=== PATIENT | female | born 1965 | race Hispanic/Latino ===

== ENCOUNTER → 2021-05-31 | Outpatient (CLI) | payer OTHER | END | disposition home or self-care (01) | LOC: OIH 13:36 | PROVIDERS: ATTEND Internal Medicine Cardiovascular Disease | DX: Z13.6 Encounter for screening for cardiovascular disorders (principal) | CPT/HCPCS: 75571 ==

== ENCOUNTER 2022-12-23 16:08 | Emergency (ER) | payer OTHER, MEDICARE ==
[~2022-12-23] VITALS: Ht 152.4 cm; Wt 90.3 kg
[2022-12-23] MEDS ORDERED: IBUP-2070 PO (18:59)
[2022-12-23 19:10] VITALS: BP 132/80; PULSE 72; RESP 18; O2SAT 98
== END 2022-12-23 19:21 | disposition home or self-care (01) ==
LOC: EDH 16:08
DX: M71.21 Synovial cyst of popliteal space [Baker], right knee (principal); E11.9 Type 2 diabetes mellitus without complications; E78.00 Pure hypercholesterolemia, unspecified; I10 Essential (primary) hypertension
CPT/HCPCS: 93971

== ENCOUNTER 2024-05-24 20:01 | Emergency (ER) | payer OTHER ==
[~2024-05-24] VITALS: Ht 149.9 cm; Wt 86.2 kg
[~2024-05-24 20:01] MED LIST: CYCL-309 PO; IBUP-2070 PO
--- NOTE | 2024-05-24 20:26 | ERN ---
ED Note History of Present Illness Stated Complaint: ABD PAIN Chief Complaint: Abdominal Pain Time Seen by MD: 20:12 Dictation: PATIENT IS A 58-YEAR-OLD FEMALE COMING IN TODAY WITH RIGHT FLANK PAIN THAT RADIATES TO RIGHT LOWER QUADRANT COLICKY FOR THREE DAYS. SHE DENIES FEVER CHILLS NAUSEA VOMITING. STATES SHE HAS A SURGICALLY ABSENT GALLBLADDER AND APPENDIX. SHE HAS POSITIVE OVER HER RIGHT FLANK WITH CVAT TENDERNESS DENIES HISTORY OF STONES OR PYELO Allergies: Coded Allergies: No Known Drug Allergies (Unverified Allergy, Unknown, 12/23/22) Home Meds Active Scripts Cyclobenzaprine HCl (Cyclobenzaprine HCl) 10 Mg Tablet, 10 MG PO TID for 30 Days, #30 TAB Prov:EM PEGUERO SPEECH COMMUNICATION PROFESSOR 03/20/23 Ibuprofen (Ibuprofen) 600 Mg Tablet, 600 MG PO Q6H PRN for PAIN, #30 TAB Prov:KIRAN BREWER V POT PUNCHER 12/23/22 Past Medical History Past Medical History: Diabetes-Type II, High Cholesterol, Hypertension, Other Additional Past Medical Hx: HX OF FX AND HERNIATED DISCS Surgical History: Appendectomy, Hysterectomy, Cholecystectomy, Other, Surgical History Other: BILATERAL WRIST, BILATERAL KNEE History: Not Applicable RN Note Reviewed/Agreed w/PFSH: Yes Review of System Dictation CONSTITUTIONAL: NEGATIVE EXCEPT FOR HPI HEAD/FACE: NEGATIVE EXCEPT FOR HPI EENT: NEGATIVE EXCEPT FOR HPI RESPIRATORY: NEGATIVE EXCEPT FOR HPI GASTROINTESTINAL/ABDOMINAL: NEGATIVE EXCEPT FOR HPI RIGHT FLANK PAIN THAT RADIATES TO RIGHT LOWER QUADRANT GENITOURINARY: NEGATIVE EXCEPT FOR HPI MUSCULOSKELETAL: NEGATIVE EXCEPT FOR HPI INTEGUMENTARY: NEGATIVE EXCEPT FOR HPI NEUROLOGICAL/PSYCH: NEGATIVE EXCEPT FOR HPI HEMATOLOGIC/LYMPHATIC: NEGATIVE EXCEPT FOR HPI ALL SYSTEMS NEGATIVE, EXCEPT NOTED ABOVE. 13 POINT REVIEW OF SYSTEMS ASSESSED AND ALL NEGATIVE EXCEPT FOR ABOVE. Initial Vital Sign VS Vital Signs Date Time Temp Pulse Resp B/P (MAP) Pulse Ox O2 Delivery O2 Flow Rate FiO2 05/24/24 20:03 98.4 74 20 155/83 98 Room Air Physical Exam Dictation VITAL SIGNS REVIEWED GENERAL APPEARANCE: ALERT, ORIENTED X 3, MONITOR ACUTE DISTRESS, WELL DEVELOPED, NOURISHED. OBESITY HEAD AND FACE: NON-TRAUMATIC. EYES: PERRL, PINK CONJUNCTIVAS, EYELID NO TRAUMA, ANTERIOR CHAMBER WITH ARCUS SENILIS. EARS: PINNAS INTACT AND NO SIGNS OF TRAUMA OR ERYTHEMA EAR CANALS CLEAR AND NO DISCHARGE TM NO ERYTHEMA NOSE: NO DISCHARGE, NO BLEEDING. OROPHARYNX: MOUTH NORMAL, TONGUE PINK, PHARYNX CLEAR,NO ERYTHEMA, TONSILS NO EXUDATES, NO ABSCESSES NOTED, MUCOUS MEMBRANE MOIST NECK: SUPPLE, NON-TENDER, NO THYROMEGALY, NO MASSES, NO JVD, NO BRUITS BREAST:DEFERRED CHEST:NO TENDERNESS, NO CREPITUS, NO PARADOXICAL MOVEMENT, NO RETRACTIONS LUNGS:CLEAR, WELL-VENTILATED, SYMMETRIC, NO RALES, NO WHEEZING, NO RHONCHI, NO STRIDOR, GOOD BREATH SOUNDS BILATERALLY HEART: REGULAR RATE, REGULAR RHYTHM, NO MURMUR, NO GALLOPS VASCULAR: NO PERIPHERAL EDEMA, ABDOMEN: SOFT, POSITIVE BOWEL SOUNDS, NONDISTENDED, NO GUARDING, NONTENDER, NO REBOUND, NO MASSES NO HEPATOMEGALY, NO SPLENOMEGALY, NO MENDIOLA'S SIGN, NO HERNIAS. POSITIVE CVAT RICE RECTAL: DEFERRED GENITAL: DEFERRED NEUROLOGICAL: NORMAL SPEECH, MOTOR FUNCTION INTACT, SENSORY FUNCTION INTACT MUSCULOSKELETAL: NECK NONTENDER, FULL RANGE OF MOTION, BACK NONTENDER, FULL RANGE OF MOTION, EXTREMITIES: NONTENDER, FULL RANGE OF MOTION SKIN: COLOR PINK, DRY, NO TURGOR, NO RASH, NO LACERATIONS, NO ABRASIONS, NO CONTUSIONS. LYMPHATIC: DEFERRED Results (Laboratory/Radiology) Laboratory/Radiology Laboratory Tests Test 05/24/24 20:50 White Blood Count 8.0 K/uL (4.8-10.8) Red Blood Count 4.65 MIL/uL (4.00-5.50) Hemoglobin 13.5 g/dL (12.0-16.0) Hematocrit 39.5 % (36-48) Mean Corpuscular Volume 84.9 fL (79-99) Mean Corpuscular Hemoglobin 29.0 pg (27.0-33.0) Mean Corpuscular Hemoglobin Concent 34.2 g/dL (32.0-36.0) Red Cell Distribution Width 13.2 % (11.0-15.5) Platelet Count 243 K/uL (130-400) Mean Platelet Volume 11.0 fL (7.5-10.5) H Immature Granulocyte % (Auto) 0.1 % (0-1) Neutrophils (%) (Auto) 64.8 % (40.0-77.0) Lymphocytes (%) (Auto) 28.1 % (21.0-51.0) Monocytes (%) (Auto) 5.6 % (3.0-13.0) Eosinophils (%) (Auto) 0.9 % (0.0-8.0) Basophils (%) (Auto) 0.5 % (0.0-5.0) Neutrophils # (Auto) 5.2 K/uL (1.8-7.7) Lymphocytes # (Auto) 2.3 K/uL (1.0-4.8) Monocytes # (Auto) 0.5 K/uL (0.1-1.0) Eosinophils # (Auto) 0.07 K/uL (0.00-0.70) Basophils # (Auto) 0.04 K/uL (0.00-0.20) Absolute Immature Granulocyte (auto 0.01 K/uL (0-1) Nucleated Red Blood Cells 0.0 % (0.0-0.19) Sodium Level 143 mmol/L (136-145) Potassium Level 3.3 mmol/L (3.5-5.1) L Chloride Level 102 mmol/L (101-111) Carbon Dioxide Level 33 mmol/L (21-32) H Blood Urea Nitrogen 12 mg/dL (7-18) Creatinine 0.9 mg/dL (0.5-1.0) Glomerular Filtration Rate Calc 75 mL/min (>90) Random Glucose 111 mg/dL (70-105) H Total Calcium 9.4 mg/dL (8.5-10.1) Lipase 161 U/L (16-77) H Labs Reviewed?: Yes ED Course ED Course Orders Procedure Category Date Status Time Cbc With Differential LAB 05/24/24 Complete 20:21 Urinalysis Profile LAB 05/24/24 Logged 20:21 0.9%Nacl 1000ml (Ns PHA 05/24/24 Complete 1000ml) 20:30 Ketorolac PHA 05/24/24 Complete Tromethamine 30mg/Ml 20:30 Ct Abdomen/Pelvis W/O CT 05/24/24 Resulted Contrast 20:21 Lipase LAB 05/24/24 Complete 20:21 Basic Metabolic Panel LAB 05/24/24 Complete 20:21 Potassium Bicarb/Cit PHA 05/24/24 Complete Ac 25meq (K-Lyte Ta 22:30 Current Medications Medications (Trade) Dose Ordered Sig/Marian Route PRN Reason Start Time Stop Time Status Last Admin Dose Admin Ketorolac Tromethamine (toRADol) 30 mg ONCE ONCE IVP 05/24/24 20:30 05/24/24 20:31 DC 05/24/24 23:02 Potassium Bicarbonate (K-Lyte Tablet Eff 25 Meq Tablet.eff) 25 meq ONCE ONCE PO 05/24/24 22:30 05/24/24 22:31 DC 05/24/24 23:02 Sodium Chloride 1,000 ml @ 0 mls/hr ONCE ONCE IV 05/24/24 20:30 05/24/24 20:31 DC 05/24/24 23:02 Vital Signs Date Time Temp Pulse Resp B/P (MAP) Pulse Ox O2 Delivery O2 Flow Rate FiO2 05/24/24 20:03 98.4 74 20 155/83 98 Room Air Medical Decision Making MDM Unclear the etiology of the patient's right upper quadrant pain. We will get a plain CT scan of her abdomen and pelvis to see if we see any structural causes or kidney stones. DX & DISP Disposition: Discharge Departure Impression: Primary Impression: Fatty liver Condition: Stable Additional Instructions: Discussed CT scan findings of fatty liver with primary care doctor or GI doctor. Continue to treat the pain with ibuprofen. Referrals: LIZA LOPEZ (PCP) EM PEGUERO NP May 24, 2024 20:26 NADINE GRANGER MD May 24, 2024 23:30
[2024-05-24 20:57] LABS: BASOPHILS # (AUTO) 0.04 K/uL (0.00-0.20); BASOPHILS % (AUTO) 0.5 % (0.0-5.0); EOSINOPHILS # (AUTO) 0.07 K/uL (0.00-0.70); EOSINOPHILS % (AUTO) 0.9 % (0.0-8.0); HEMATOCRIT 39.5 % (36-48); IMMATURE GRANULOCYTE ABSOLUTE 0.01 K/uL (0-1); LYMPHOCYTES # (AUTO) 2.3 K/uL (1.0-4.8); LYMPHOCYTES % (AUTO) 28.1 % (21.0-51.0); MEAN CORPUSCULAR HGB CONC 34.2 g/dL (32.0-36.0); MEAN CORPUSCULAR VOLUME 84.9 fL (79-99); MONOCYTES # (AUTO) 0.5 K/uL (0.1-1.0); MONOCYTES % (AUTO) 5.6 % (3.0-13.0); NEUTROPHILS # (AUTO) 5.2 K/uL (1.8-7.7); NEUTROPHILS % (AUTO) 64.8 % (40.0-77.0); PLATELET COUNT (AUTO) 243 K/uL (130-400); RED BLOOD CELL COUNT(AUTO) 4.65 MIL/uL (4.00-5.50); RED CELL DISTRIBUTION WIDTH 13.2 % (11.0-15.5)
[2024-05-24 21:05] LABS: CREATININE 0.9 mg/dL (0.5-1.0); POTASSIUM 3.3 mmol/L (3.5-5.1)
--- NOTE | 2024-05-24 22:01 | HMCIMG ---
CT ABDOMEN/PELVIS W/O CONTRAST CLINICAL HISTORY: RIGHT FLANK PAIN THAT RADIATES TO RIGHT LOWER QUAD COMPARISON: None TECHNIQUE: Sequential axial images of abdomen and pelvis without contrast and with sagittal and coronal reconstructions. CT was performed with one or more of the following dose reduction techniques: automated exposure control, adjustment of the mA and/or kV according to patient size, or use of iterative reconstruction technique FINDINGS: Lung bases clear. There is diffuse fatty infiltration of liver. Spleen is unremarkable. The gallbladder is surgically absent pancreas and adrenal glands are within normal limits. The kidneys and bladder are unremarkable. The uterus is surgically absent. There is moderate amount of fecal material in the colon with no identified bowel obstruction. There is no bulky abdominal or retroperitoneal lymphadenopathy. There is no free air or free fluid. The bony structures demonstrate mild diffuse degenerative changes of the spine. IMPRESSION: Fatty liver. Change prior cholecystectomy and hysterectomy. The kidneys and bladder are unremarkable. Mild constipation. The appendix is not identified but there are no secondary signs of acute appendicitis.
[2024-05-24] MEDS: PoTASSium BIcarbonate/CIT AC 25 MEQ TABLET.EFF PO ONE (23:02)
[2024-05-24] MEDS: ketOROlac 30MG VIAL (30MG/ML) IVP ONE (23:02)
[2024-05-24] MEDS: 0.9%NACL 1000ML 1,000 ML IV ONE (23:02)
[2024-05-24 23:53] VITALS: BP 148/85; PULSE 76; RESP 18; TEMP 98; O2SAT 99
== END 2024-05-24 23:54 | disposition home or self-care (01) ==
LOC: EDH 20:01
DX: K76.0 Fatty (change of) liver, not elsewhere classified (principal); E11.9 Type 2 diabetes mellitus without complications; E78.00 Pure hypercholesterolemia, unspecified; I10 Essential (primary) hypertension; Z79.899 Other long term (current) drug therapy; Z90.49 Acquired absence of other specified parts of digestive tract; Z90.710 Acquired absence of both cervix and uterus; Z98.890 Other specified postprocedural states
CPT/HCPCS: 99285; 74176; 96374; 80048; 83690; 85025; 36415; J1885; J7030